=== PATIENT | female | born 1990 | race Caucasian/White ===

== ENCOUNTER → 2016-05-11 | Outpatient (CLI) | payer BC ==
[~2016-05-11] MED LIST: ALLEGRA180 MG PO; AMITIZA8 MCG PO; CEPHALEXIN250 M2 PO; DEXTROAMPHETAMINE PO; LORAZEPAM0.5 MG PO; ONDANSETRON ODT4 MG PO; PROMETHAZINE12.5 M5 PO; ZOLOFT100 MG PO
== END ==
LOC: LAB 11:01
DX: R30.0 Dysuria (principal); R50.81 Fever presenting with conditions classified elsewhere

== ENCOUNTER → 2016-12-02 | Outpatient (CLI) | payer BC ==
[2014-09-16 16:18] VITALS: BP 109/62
== END ==
LOC: RAD 14:00
DX: E04.9 Nontoxic goiter, unspecified (principal)

== ENCOUNTER → 2016-12-24 | Outpatient (CLI) | payer BC ==
[2014-09-16 16:18] VITALS: BP 109/62
== END ==
LOC: LAB 14:40
DX: N92.6 Irregular menstruation, unspecified (principal)

== ENCOUNTER → 2017-03-10 | Outpatient (CLI) | payer BC ==
[2014-09-16 16:18] VITALS: BP 109/62
== END ==
LOC: RAD 08:28
DX: R56.9 Unspecified convulsions (principal)
CPT/HCPCS: A9585

== ENCOUNTER → 2017-08-24 | Outpatient (CLI) | payer BC ==
[2014-09-16 16:18] VITALS: BP 109/62
== END ==
LOC: VAS 15:52 → RAD 16:00
DX: R01.1 Cardiac murmur, unspecified (principal); R55 Syncope and collapse; R00.1 Bradycardia, unspecified

== ENCOUNTER → 2021-03-08 | Outpatient (CLI) | payer MEDICAID ==
[~2021-03-08] MED LIST changes: +PRENATAL FORMU1 EAC2 PO
== END ==
LOC: LAB 14:59
DX: Z20.822 Contact with and (suspected) exposure to COVID-19 (principal)

== ENCOUNTER 2023-12-17 10:08 | Emergency (ER) | payer OTHER, MEDICAID ==
[~2023-12-17] VITALS: Ht 152.4 cm; Wt 68.2 kg
[2023-12-17] MEDS ORDERED: ATOMOXETINE HCL10 MG PO (10:21)
[2023-12-17] MEDS ORDERED: ARIPIPRAZOLE2 MG PO (10:22)
[2023-12-17] MEDS ORDERED: OMEPRAZOLE40 MG PO (10:22)
[2023-12-17] MEDS ORDERED: VILAZODONE HCL20 MG PO (10:22)
[2023-12-17] MEDS ORDERED: AMOXICILLIN AND1 TA2 PO (10:39)
[2023-12-17] MEDS ORDERED: FLUCONAZOLE150 MG PO (10:39)
[2023-12-17 10:56] VITALS: BP 105/74
== END 2023-12-17 10:56 | disposition home or self-care (01) ==
LOC: ED 10:08
DX: S61.211A Laceration without foreign body of left index finger without damage to nail, initial encounter (principal); W27.8XXA Contact with other nonpowered hand tool, initial encounter; Z88.1 Allergy status to other antibiotic agents
CPT/HCPCS: 90715